=== PATIENT | male | born 1950 | race Hispanic/Latino ===

== ENCOUNTER 2022-09-28 22:42 | Emergency (ER) | payer SELFPAY ==
[~2022-09-28] VITALS: Ht 162.6 cm; Wt 68.0 kg
[2022-09-29 01:57] VITALS: BP 127/84; PULSE 74; RESP 18; TEMP 98.3; O2SAT 98
== END 2022-09-28 23:40 | disposition home or self-care (01) ==
LOC: ER 22:55
DX: Z46.6 Encounter for fitting and adjustment of urinary device (principal); R50.9 Fever, unspecified
CPT/HCPCS: 51798; 99283